=== PATIENT | female | born 1980 | race Caucasian/White ===

== ENCOUNTER → 2017-07-17 | Outpatient (CLI) | payer OTHER ==
[2017-07-17 19:29] LABS: BASO % 0.3 % (0.0-1.0); EOS % 0.4 % (0.0-3.0); LARGE UNSTAINED CELL # 0.1 K/mm3 (0.0-0.4); LARGE UNSTAINED CELL % 0.9 % (0.0-4.0); LYMPH % 12.6 % (24.0-44.0); MEAN CORPUSCULAR HEMOGLOBIN 32.4 pg (27.0-33.0); MEAN CORPUSCULAR HGB CONC 33.3 g/dl (32.0-36.5); MEAN CORPUSCULAR VOLUME 97.3 fl (80.0-96.0); MONO # 0.4 K/mm3 (0.0-0.8); MONO % 5.6 % (0.0-5.0); NEUTROPHILS # 5.9 K/mm3 (1.8-7.7); NEUTROPHILS % 80.2 % (36.0-66.0); PLATELET COUNT, AUTOMATED 244 k/mm3 (150-450); RED CELL DISTRIBUTION WIDTH 13.5 % (11.5-14.5); WHITE BLOOD COUNT 7.4 K/mm3 (4.0-10.0)
[2017-07-18 11:09] LABS: HBsAg Prenatal NEGATIVE (NEGATIVE)
== END ==
LOC: M SMT 14:00
PROVIDERS: ATTEND Obstetrics & Gynecology
DX: Z34.82 Encounter for supervision of other normal pregnancy, second trimester (principal); Z36 Encounter for antenatal screening of mother; Z3A.00 Weeks of gestation of pregnancy not specified

== ENCOUNTER → 2017-07-20 | Outpatient (CLI) | payer OTHER ==
--- NOTE | 2017-07-20 16:18 | REP ---
Obstetric sonography: History: Supervision of for anatomy. Findings: Scanning through the gravid uterus demonstrates a viable single intrauterine gestation in a variable lie. motion is observed and heart rate is recorded at 141 beats per minute. An anterior grade zero placenta is seen without evidence of previa. Amniotic fluid is subjectively normal. Closed cervical length measured transabdominally is 4.5 cm. No extrauterine abnormality is observed. No anomaly is seen. face and profile and four-chamber heart views are less than optimally achieved due to position. The following additional anatomic structures are identified and felt to be unremarkable: cranium, choroid plexus, cavum, cerebellum posterior fossa, nuchal fold, lungs, left and right ventricular outflow tract view, diaphragm, left-sided stomach, abdominal wall cord insertion, three-vessel umbilical cord, kidneys and bladder, spine, upper and lower extremities. Biometry chart: BPD 4.1 cm 18 weeks 4 days Head circumference 15.6 cm 18 weeks 4 days Abdominal circumference 12.9 cm 18 weeks 3 days Femur length 3.1 cm 19 weeks 5 days Humeral length 2.9 cm 19 weeks 4 days Cerebellar diameter 1.8 cm 18 weeks 0 days HC/AC ratio normal 1.21, cephalic index normal 0.73 estimated weight 268 grams 0 pounds 9 ounces 69th percentile for 18 weeks 3 days. Impression: Viable single intrauterine gestation at 18 weeks 5 days by today's composite sonographic criteria. ALIA by today's sonography 12/18/2017. face and four-chamber heart views less than optimally seen due to position. Signed by Lazaro Salcido MD 07/20/2017 05:01 P
== END ==
LOC: M LRY 13:47
PROVIDERS: ATTEND Obstetrics & Gynecology
DX: Z34.82 Encounter for supervision of other normal pregnancy, second trimester (principal); Z36 Encounter for antenatal screening of mother; Z3A.18 18 weeks gestation of pregnancy

== ENCOUNTER → 2017-08-23 | Outpatient (CLI) | payer OTHER ==
--- NOTE | 2017-08-24 13:35 | REP ---
Clinical: Anatomical evaluation. Comparison: 07/20/2017 . Findings: Examination demonstrates a single live intrauterine in breech presentation. motion is identified by technologist. Placenta is noted anteriorly and grade zero without evidence for placenta previa or abruption. Amniotic fluid volume is normal. Cervix measures 3.9 cm in length and appears closed. Gestational age by LMP 23 weeks 2 days with ALIA 12/18/2017 . Gestational age by current measurements 23 weeks 1 day with ALIA 12/19/2017 . FHR equals 150 beats per minute. Estimated weight 624 grams ( 59th percentile). Anatomical assessment demonstrates normal structures including cranium, choroid plexus, cavum, cerebellum/posterior fossa, facial features, lungs, four-chamber heart/ventricular outflow tracts, diaphragm, stomach, cord insertion/three-vessel cord, kidneys/bladder, and extremities. Impression: Single live intrauterine in breech presentation demonstrating appropriate interval growth. In conjunction with prior examination anatomical assessment is complete and normal. No gross abnormalities are identified. Signed by Hermelindo Vidal MD 08/24/2017 02:53 A
== END ==
LOC: M LRY 13:41
PROVIDERS: ATTEND Advanced Practice Midwife
DX: Z36 Encounter for antenatal screening of mother (principal)

== ENCOUNTER → 2017-09-12 | Outpatient (CLI) | payer OTHER ==
[2017-09-12 13:29] LABS: BASO % 0.3 % (0.0-1.0); IMMATURE GRANULOCYTE % 1.8 % (0-0); LYMPH # 1.1 10^3/uL (1.5-4.5); LYMPH % 9.1 % (24.0-44.0); MEAN CORPUSCULAR HEMOGLOBIN 31.4 pg (27.0-33.0); MEAN CORPUSCULAR HGB CONC 32.4 g/dl (32.0-36.5); MEAN CORPUSCULAR VOLUME 97.1 fl (80.0-96.0); MONO # 0.6 10^3/uL (0.0-0.8); MONO % 4.7 % (0.0-5.0); NEUTROPHILS % 84.1 % (36.0-66.0); PLATELET COUNT, AUTOMATED 224 10^3/uL (150-450); RED CELL DISTRIBUTION WIDTH 12.9 % (11.5-14.5); WHITE BLOOD COUNT 11.9 10^3/uL (4.0-10.0)
== END ==
LOC: M SMT 10:42
PROVIDERS: ATTEND Advanced Practice Midwife
DX: Z34.83 Encounter for supervision of other normal pregnancy, third trimester (principal)

== ENCOUNTER 2017-10-15 20:12 | Outpatient (CLI) | payer OTHER ==
[~2017-10-15] VITALS: Ht 162.6 cm; Wt 68.6 kg
[2017-10-15 22:34] LABS: MEAN CORPUSCULAR HEMOGLOBIN 31.6 pg (27.0-33.0); MEAN CORPUSCULAR HGB CONC 32.8 g/dl (32.0-36.5); MEAN CORPUSCULAR VOLUME 96.3 fl (80.0-96.0); PLATELET COUNT, AUTOMATED 225 10^3/uL (150-450); RED CELL DISTRIBUTION WIDTH 12.8 % (11.5-14.5); WHITE BLOOD COUNT 10.8 10^3/uL (4.0-10.0)
[2017-10-15] MEDS: BETAMETHASONE SOLUSPAN 6MG/ML INJ 5ML (J0702) IM SCH (22:44)
[2017-10-15 22:45] LABS: INR 0.96
[2017-10-15 23:00] LABS: ALBUMIN 2.4 GM/DL (3.2-5.2); ALBUMIN/GLOBULIN RATIO 0.73 (1.00-1.93); ALKALINE PHOSPHATASE 65 U/L (45-117); ALT/SGPT 10 U/L (12-78); ANION GAP 5 MEQ/L (8-16); AST/SGOT 9 U/L (7-37); BILIRUBIN,TOTAL 0.4 MG/DL (0.2-1.0); BLOOD UREA NITROGEN 6 MG/DL (7-18); CALCIUM LEVEL 8.3 MG/DL (8.5-10.1); CARBON DIOXIDE LEVEL 26 MEQ/L (21-32); CHLORIDE LEVEL 110 MEQ/L (98-107); GLOMERULAR FILTRATION RATE > 60.0 (>60); GLUCOSE, FASTING 90 MG/DL (70-105); POTASSIUM SERUM 4.1 MEQ/L (3.5-5.1); SODIUM LEVEL 141 MEQ/L (136-145); TOTAL PROTEIN 5.7 GM/DL (6.4-8.2)
[2017-10-16 06:23] LABS: MEAN CORPUSCULAR HEMOGLOBIN 31.6 pg (27.0-33.0); MEAN CORPUSCULAR HGB CONC 32.8 g/dl (32.0-36.5); MEAN CORPUSCULAR VOLUME 96.5 fl (80.0-96.0); PLATELET COUNT, AUTOMATED 217 10^3/uL (150-450); RED CELL DISTRIBUTION WIDTH 12.8 % (11.5-14.5); WHITE BLOOD COUNT 9.7 10^3/uL (4.0-10.0)
[2017-10-16 07:23] VITALS: BP 100/58
[2017-10-16 09:03] VITALS: BP 109/59
--- NOTE | 2017-10-16 09:49 | REP ---
OB ULTRASOUND: Real-time sonographic evaluation of the gravid uterus performed utilizing transabdominal and endovaginal technique. There is a single living intrauterine gestation, estimated gestational age 31 weeks with EDC 12/18/2017. Today's measurements indicate appropriate growth. BPD 80 mm 31 weeks 6 days, 63rd percentile HC 294 mm 32 weeks 3 days, 72nd percentile AC 275 mm 31 weeks 4 days, 58th percentile FL 60 mm 31 weeks 3 days, 55th percentile HC/AC ratio 1.07 within normal range. Estimated weight 1803 grams, 56th percentile. Cervix is closed and measures 3.3 cm in length. heart rate 131 beats per minute. Amniotic fluid within normal limits. SVETA 16.4 within normal range of 8.8 to 23.8. S/d ratio 2.65 within normal range of 2.5 - 3.5. RI 0.62 within normal range of 0.59 - 0.75. Visualized anatomy today includes the lateral ventricles, four chamber heart, left ventricular outflow tract, stomach, kidneys, and spine which are all grossly unremarkable. position vertex. Placenta is anterior and grade 1 with no previa or abruption. Signed by Ryan Lopez MD 10/16/2017 04:56 P
[2017-10-16] MEDS: BETAMETHASONE SOLUSPAN 6MG/ML INJ 5ML (J0702) IM SCH (10:12)
== END 2017-10-16 10:28 | disposition home or self-care (01) ==
LOC: M LDO 20:12
PROVIDERS: ATTEND Obstetrics & Gynecology
DX: O26.853 Spotting complicating pregnancy, third trimester (principal); Z3A.31 31 weeks gestation of pregnancy; O09.523 Supervision of elderly multigravida, third trimester
CPT/HCPCS: 36415; 59025; 76815; 76816; 76817; 76820; 80053; 80307; 85027; 85384; 85460; 85610; 85730; 86850; 86870; 86900; 86901; 96372; J0702

== ENCOUNTER → 2017-11-27 | Outpatient (REF) | payer OTHER | LOC: M LAB REF 17:15 | DX: Z34.83 Encounter for supervision of other normal pregnancy, third trimester (principal); Z3A.00 Weeks of gestation of pregnancy not specified ==

== ENCOUNTER 2017-12-12 04:43 | Inpatient (IN) | payer OTHER ==
[2017-12-12] MEDS: BICITRA 30ML SOLN UDC PO (05:00)
[2017-12-12] MEDS: LR 1,000 ML IV ×5 (05:40→18:24)
[2017-12-12 05:50] LABS: HEMATOCRIT 32.1 % (36.0-47.0); HEMOGLOBIN 10.3 g/dl (12.0-16.0); MEAN CORPUSCULAR HEMOGLOBIN 29.7 pg (27.0-33.0); MEAN CORPUSCULAR HGB CONC 32.1 g/dl (32.0-36.5); MEAN CORPUSCULAR VOLUME 92.5 fl (80.0-96.0); PLATELET COUNT, AUTOMATED 214 10^3/uL (150-450); RED BLOOD COUNT 3.47 10^6/uL (4.00-5.40); RED CELL DISTRIBUTION WIDTH 13.1 % (11.5-14.5); WHITE BLOOD COUNT 11.4 10^3/uL (4.0-10.0)
[2017-12-12 06:06] LABS: AMPHETAMINES URINE REFLEX NEGATIVE (NEGATIVE); BARBITURATES URINE REFLEX NEGATIVE (NEGATIVE); BENZODIAZEPINES URINE REFLEX NEGATIVE (NEGATIVE); CANNABINOIDS URINE REFLEX NEGATIVE (NEGATIVE); COCAINE METABOLITE URINE REFLE NEGATIVE (NEGATIVE); METHADONE URINE REFLEX NEGATIVE (NEGATIVE); OPIATES URINE REFLEX NEGATIVE (NEGATIVE); PHENCYCLIDINE URINE REFLEX NEGATIVE (NEGATIVE)
[2017-12-12] MEDS ORDERED: NALOXONE INJ 0.4 MG/1 ML VIAL (J2310) IV ×2 (08:01)
[2017-12-12] MEDS ORDERED: ONDANSETRON 4MG/2ML VIAL (J2405) IV ×3 (08:01→09:45)
[2017-12-12] MEDS ORDERED: NALBUPHINE HCL 10 MG/ML AMP (J2300) IV ×2 (08:01→09:45)
[2017-12-12] MEDS ORDERED: METOCLOPRAMIDE INJ 10MG/2ML VIAL (J2765) IV (08:01)
[2017-12-12] MEDS: PRENATAL VITAMINS CHEWABLE TABLET PO (09:00)
[2017-12-12] MEDS ORDERED: MOM 30ML SUSPENSION UDC PO (09:30)
[2017-12-12] MEDS: OXYTOCIN DRIP 30 UNITS in APPROPRIATE DILUENT 1 EA IV (09:30)
[2017-12-12] MEDS ORDERED: fentaNYL 100 MCG/2 ML INJECTION (J3010) IV (09:45)
[2017-12-12] MEDS ORDERED: MORPHINE PRES-FREE INJ 10 MG/10 ML VIAL (J2274) As Ordered (10:00)
[2017-12-12] MEDS ORDERED: ePHEDrine INJ 50 MG/ML VIAL As Ordered (10:00)
[2017-12-12] MEDS ORDERED: ONDANSETRON 4MG/2ML VIAL (J2405) As Ordered (10:00)
[2017-12-12] MEDS ORDERED: PHENYLephrine HCL 500 MCG/5 ML (100MCG/ML) SYRINGE (J2370) As Ordered (10:00)
[2017-12-12] MEDS ORDERED: KETOROLAC 60 MG/2 ML VIAL (J1885) As Ordered (10:00)
[2017-12-12] MEDS: MEASLES,MUMPS,RUBELLA VACCINE INJ (MMR-II) (90707) SC (11:43)
[2017-12-12] MEDS: KETOROLAC 30 MG/ML VIAL (J1885) IV ×2 (15:33→21:50)
[2017-12-12] MEDS: DOCUSATE SODIUM 100 MG CAP PO (21:49)
[2017-12-13] MEDS: LR 1,000 ML IV ×2 (01:30→09:30)
[2017-12-13] MEDS: KETOROLAC 30 MG/ML VIAL (J1885) IV (04:03)
[2017-12-13 07:14] LABS: HEMATOCRIT 27.8 % (36.0-47.0); HEMOGLOBIN 8.9 g/dl (12.0-16.0); MEAN CORPUSCULAR HEMOGLOBIN 29.7 pg (27.0-33.0); MEAN CORPUSCULAR VOLUME 92.7 fl (80.0-96.0); PLATELET COUNT, AUTOMATED 163 10^3/uL (150-450); WHITE BLOOD COUNT 14.1 10^3/uL (4.0-10.0)
[2017-12-13] MEDS: DOCUSATE SODIUM 100 MG CAP PO ×2 (08:43→20:29)
[2017-12-13] MEDS: PRENATAL VITAMINS CHEWABLE TABLET PO (08:43)
[2017-12-13 09:16] LABS: FETAL SCREEN PROF. 1 1
[2017-12-13] MEDS: IBUPROFEN 800 MG TAB PO ×2 (11:41→20:30)
[2017-12-13] MEDS: RHOGAM 300 MCG (1500 IU) INJ (J2790) IM (15:09)
[2017-12-13] MEDS ORDERED: diphenhydrAMINE 50 MG CAP PO (16:15)
[2017-12-13] MEDS: PERCOCET 5MG/325MG TAB PO (21:15)
[2017-12-14] MEDS: IBUPROFEN 800 MG TAB PO ×2 (03:07→12:15)
[2017-12-14] MEDS: PERCOCET 5MG/325MG TAB PO ×2 (05:42→12:20)
[2017-12-14] MEDS: DOCUSATE SODIUM 100 MG CAP PO (08:47)
[2017-12-14] MEDS: PRENATAL VITAMINS CHEWABLE TABLET PO (08:48)
== END 2017-12-14 14:30 | disposition home or self-care (01) | DRG 766 ==
LOC: M LDI 04:43 → M OBS 10:51
PROVIDERS: Obstetrics & Gynecology
PROC: 10D00Z1 Extraction of Products of Conception, Low, Open Approach (ICD-10-PCS; principal; 2017-12-12 07:30)
PROC: 3E0234Z Introduction of Serum, Toxoid and Vaccine into Muscle, Percutaneous Approach (ICD-10-PCS; 2017-12-12 07:30)
DX: O34.211 Maternal care for low transverse scar from previous cesarean delivery (principal); Z3A.39 39 weeks gestation of pregnancy; Z37.0 Single live birth

== ENCOUNTER → 2019-05-08 | Outpatient (REF) | payer OTHER ==
[~2019-05-08] MED LIST: FLINCHW9 PO; IBUP-1114 PO; IBUP1TAB7 PO; OXYC1TAB23 PO; PERCOCET PO
[2019-05-10 15:14] LABS: HPV HYBRID CAPTURE II Negative (Negative)
== END ==
LOC: M LAB REF 17:32
PROVIDERS: ATTEND Advanced Practice Midwife
DX: Z12.4 Encounter for screening for malignant neoplasm of cervix (principal)

== ENCOUNTER → 2019-05-21 | Outpatient (CLI) | payer OTHER | LOC: M SMT 10:54 | PROVIDERS: ATTEND Advanced Practice Midwife | DX: Z13.79 Encounter for other screening for genetic and chromosomal anomalies (principal) ==

== ENCOUNTER → 2019-05-27 | Outpatient (CLI) | payer OTHER ==
--- NOTE | 2019-05-27 10:36 | REPMRS ---
Patient History The patient states she had a clinical breast exam in April 2019.Family history of prostate cancer in paternal uncle, breast cancer in paternal aunt. Taking hormonal contraceptives for 1 year. Father with brain cancer. 2D only - [place]. denied, patient on Depo. The [place] Dorantes lifetime risk for breast cancer is 14.1%. Digital Mammo Screening Bilat: May 27, 2019 - Exam #: [id number] Bilateral CC and MLO view(s) were taken. Technologist: Amena Henson, Technologist No prior studies available for comparison. FINDINGS: The breast tissue is heterogeneously dense. This may lower the sensitivity of mammography. There is no evidence of cancer on this mammogram. Assessment: BI-RADS/ACR category 2 mammogram. Benign Findings. Recommendation Routine screening mammogram of both breasts in 1 year (for women over age 40). This mammogram was interpreted with the aid of an FDA-approved computer-aided dectection system. Electronically Signed By: Ryan Lopez MD 05/27/19 [id number]
== END ==
LOC: M RAD 10:00
PROVIDERS: ATTEND Advanced Practice Midwife
DX: Z12.31 Encounter for screening mammogram for malignant neoplasm of breast (principal); Z80.3 Family history of malignant neoplasm of breast; Z80.42 Family history of malignant neoplasm of prostate

== ENCOUNTER → 2020-01-08 | Outpatient (REF) | payer OTHER | LOC: M SFHCLERA 17:07 | PROVIDERS: ATTEND Nurse Practitioner Family | DX: R53.81 Other malaise (principal) ==

== ENCOUNTER → 2020-05-14 | Outpatient (REF) | payer OTHER | LOC: M SFHCLERA 17:15 | PROVIDERS: ATTEND Physician Assistant | DX: R30.9 Painful micturition, unspecified (principal) | CPT/HCPCS: 81002; 81025; 87088; 87186; G0463 ==

== ENCOUNTER → 2020-10-14 | Outpatient (CLI) | payer OTHER | LOC: M WHC 13:07 | PROVIDERS: ATTEND Obstetrics & Gynecology | DX: R10.2 Pelvic and perineal pain (principal); Z53.9 Procedure and treatment not carried out, unspecified reason ==

== ENCOUNTER → 2020-11-03 | Outpatient (CLI) | payer OTHER ==
--- NOTE | 2020-11-03 16:24 | REP ---
INDICATION: R10.2 PELVIC AND PERINEAL PAIN. COMPARISON: None. TECHNIQUE: Transabdominal and transvaginal scanning were performed. FINDINGS: Uterine dimensions are normal at 8.9 x 4.8 x 2.2 cm. Endometrial echo is 0.9 cm thick and centrally placed. No free fluid is seen in the cul-de-sac. Visualized bladder leslie are smooth. The uterus is somewhat heterogeneous and is seen to be retroverted. No focal uterine mass is seen. There is a cervical nabothian cyst. Visualized urinary bladder leslie are smooth. The right ovary has dimensions of 2.9 x 1.8 x 2.2 cm. The left ovary dimensions are normal as well at 3.7 x 3.0 x 2.6 cm. It's Doppler flow was normal with resistive index of 0.47. There is a 2.4 cm complex follicle cyst in the left ovary. IMPRESSION: Retroverted uterus. Small complex follicle cyst left ovary.. Otherwise negative pelvic sonography. <Electronically signed by Rob Salcido > 11/03/20 [id number]
== END ==
LOC: M WHC 12:50
PROVIDERS: ATTEND Obstetrics & Gynecology
DX: N85.4 Malposition of uterus (principal); N83.02 Follicular cyst of left ovary; R10.2 Pelvic and perineal pain

== ENCOUNTER → 2020-12-22 | Outpatient (CLI) | payer OTHER | LOC: M LABSMTC 10:55 | PROVIDERS: ATTEND Anesthesiology | DX: Z01.812 Encounter for preprocedural laboratory examination (principal); Z20.822 Contact with and (suspected) exposure to COVID-19 ==

== ENCOUNTER 2020-12-27 07:36 | Day surgery (SDC) | payer OTHER, MEDICAID ==
[~2020-12-27] VITALS: Ht 162.6 cm; Wt 78.5 kg
[~2020-12-27 07:36] MED LIST changes: +LR 1,000 ML IV ONE; +ceFAZolin SOD 2 GM in IV 1 EA IV ONE
--- OUTSIDE RECORDS SUMMARY | 2020-12-27 07:45 | CCD ---
Author Author [facility] Organization [facility] Address Unknown Phone Unavailable Care Team Providers Care Shank Piece Tacker Name Role Phone PETRONASHUKRI STEFANODEDE Unavailable Unavailable Re-disclosure Warning The records that you are about to access may contain information from federally-assisted alcohol or drug abuse programs. If such information is present, then the following federally mandated warning applies: This information has been disclosed to you from records protected by federal confidentiality rules (42 CFR part 2). The federal rules prohibit you from making any further disclosure of this information unless further disclosure is expressly permitted by the written consent of the person to whom it pertains or as otherwise permitted by 42 CFR part 2. A general authorization for the release of medical or other information is NOT sufficient for this purpose. The Federal rules restrict any use of the information to criminally investigate or prosecute any alcohol or drug abuse patient.The records that you are about to access may contain highly sensitive health information, the redisclosure of which is protected by Article 27-F of the [place] State Public Health law. If you continue you may have access to information: Regarding HIV / AIDS; Provided by facilities licensed or operated by the [facility] Office of Mental Health; or Provided by the [facility] Office for People With Developmental Disabilities. If such information is present, then the following [facility] mandated warning applies: This information has been disclosed to you from confidential records which are protected by state law. State law prohibits you from making any further disclosure of this information without the specific written consent of the person to whom it pertains, or as otherwise permitted by law. Any unauthorized further disclosure in violation of state law may result in a fine or shelter sentence or both. A general authorization for the release of medical or other information is NOT sufficient authorization for further disc losure. Family History Family Member Name Family Member Gender Family Member Status Date o f Status Description Data Source(s) Unknown Male Problem MEDENT ([facility], ) Encounters Encounter Providers Location Date Indications Data Source(s ) Outpatient [address] [facility] [id number] 12/06/2020 12:00:00 AM EST eCW1 ([facility]) Outpatient [address] [facility] [id number] 10/14/2020 12:00:00 AM EST eCW1 ([facility]) Outpatient Attender: DEDE [facility] 07/27/2020 06:33:57 AM EDT [facility] Outpatient [address] [facility] [id number] 05/14/2020 12:00:00 AM EDT eCW1 ([facility]) Outpatient Attender: DEDE [facility] 05/04/2020 07:57:02 PM EDT [facility] [address] [place] [address] 01/08/2020 12:00:00 AM EST eCW1 ([facility]) Medications Medication Brand Name Start Date Product Form Dose Route Admi nistrative Instructions Pharmacy Instructions Status Indications Reaction Description Data Source(s) Acetaminophen 325 MG / Oxycodone Hydroch loride 5 MG Oral Tablet [Percocet] Percocet 5-325 MG Percocet 5-325 MG 12/14/2020 12:00:00 AM EST 1 .0 {tablet_as_needed} active Percocet 5-32 5 MG eCW1 ([facility]) NITROFURANTOIN, MACROCRYSTALS 25 MG / Ni trofurantoin, Monohydrate 75 MG Oral Capsule [Macrobid] Macrobid 100 MG Macrobid 100 MG 05/14/2020 12:00:00 AM EDT active Macrobid 100 MG eCW1 ([facility]) Albuterol Sulfate HFA 108 (90 Base) MCG/ACT Albuterol Sulfate HFA 108 (90 Base) MCG/ACT 01/08/2020 12:00:00 AM EST active 2 puffs as needed eCW1 ([facility]) 12 HR Dextromethorphan Hydrobromide 30 M G / Guaifenesin 600 MG Extended Release Oral Tablet [Mucinex DM] Mucinex DM 30-600 MG Mucinex DM 30-600 MG 01/08/20 12:00:00 AM EST active 1 tablet as needed eCW1 ([facility]) Fluticasone Propionate 50 MCG/ACT Fluticasone Propionate 50 MCG/ACT 01/08/2020 12:00:00 AM EST active 1 spray in each nostril eCW1 ([facility]) doxycycline hyclate 100 MG Oral Capsule Doxycycline Hy clate 100 MG Doxycycline Hyclate 100 MG 01/08/2020 12:00:00 AM EST active 1 capsule eCW1 ([facility]) Insurance Providers Payer name Policy type / Coverage type Policy ID Covered alliance party ID Covered alliance party's relationship to belcher Policy Belcher Plan Information CATHERINE [id number] SP [id number] [facility] [id number] SP [id number] [facility] P UNAVAILABLE S U NAVAILABLE [facility] [id number] SP [id number] Usp AT [facility] Maintenance Organization [place] [id number] Self [id number] [facility] AT [facility] Maintenance [facility] ([facility] [id number] Self [id number] Usp AT [facility] ([facility] [id number] Self [id number] [facility] ([facility] [id number] Self [id number] [facility] [id number] SP [id number] [facility] [id number] 2 [id number] [facility] O [id number] P [id number] [facility] O [id number] P [id number] [facility] [id number] S [id number] Problems, Conditions, and Diagnoses Code Display Name Description Problem Type Effective Dates Data Source(s) N93.9 Abnormal uterine bleeding Abnormal uterine bleeding (A UB) Problem 12/14/2020 12:00:00 AM EST eCW1 ([facility]) Surgeries/Procedures Procedure Description Date Indications Data Source(s) Influenza A+B 01/08/2020 12:00:00 AM EST eCW1 ([facility]) STREP A ASSAY W/OPTIC 01/08/2020 12:00:00 AM EST eCW1 ([facility]) Results ID Date Data Source [id number] 12/22/2020 09:00:00 AM EST [facility] Name Value Range Interpretation Code Description Data Lenore rce(s) Supporting Document(s) SARS coronavirus 2 RNA Not Detected [facility] [place] This lab was ordered by [facility] and reported by [facility]. ID Date Data Source [facility] Pelvis non-OB COMPLETE US 11/03/2020 12:00:00 AM EST eC W1 ([facility]) Name Value Range Interpretation Code Description Data Lenore rce(s) Supporting Document(s) WWBC Pelvis non-OB COMPLETE US eCW1 ([facility]) ID Date Data Source URINE CULTURE 05/17/2020 09:59:50 AM EDT eCW1 ([facility]) Name Value Range Interpretation Code Description Data Lenore rce(s) Supporting Document(s) URINE CULTURE eCW1 ([facility]) ID Date Data Source Urinalysis, no micro 05/15/2020 11:59:42 AM EDT eCW1 ([facility]) Name Value Range Interpretation Code Description Data Lenore rce(s) Supporting Document(s) 2+ Leukocyte eCW1 ([facility]) 5 pH eCW1 ([facility]) 1.015 Spec gravity eCW1 ([facility]) 2+ Protein eCW1 ([facility]) neg Glucose eCW1 ([facility]) neg Ketones eCW1 ([facility]) positive Nitrate eCW1 ([facility]) neg Bilirubin eCW1 ([facility]) yes Internal QC Acceptable (Y/N) e CW1 ([facility]) neg Urobili eCW1 ([facility]) 250 Blood eCW1 ([facility]) ID Date Data Source Test, Urine 05/14/2020 06:15:45 AM EDT eCW1 ([facility]) Name Value Range Interpretation Code Description Data Lenore rce(s) Supporting Document(s) Choriogonadotropin.beta subunit ( test) [Presence] in Urin e neg Test, Urine eCW1 ([facility]) yes Internal QC Acceptable (Y/N) e CW1 ([facility]) ID Date Data Source GATS (NEGATIVE STREP SCREEN) 01/08/2020 12:00:00 AM EST eCW1 ([facility]) Name Value Range Interpretation Code Description Data Lenore rce(s) Supporting Document(s) FULL REPORT IN LAB NOTES (eCW and [facility]). GATS CULTURE (NEG STREP SCR) eCW1 ([facility]) Procedure Social History Code Duration Value Status Description Data Source(s ) Smoking 12/11/2020 12:00:00 AM EST Never Smoker completed Never S moker eCW1 ([facility]) Smoking 10/14/2020 12:00:00 AM EST Never Smoker completed Never S moker eCW1 ([facility]) Smoking 05/14/2020 12:00:00 AM EDT Never Smoker completed Never S moker eCW1 ([facility]) Vital Signs ID Date Data Source UNK Name Value Range Interpretation Code Description Data Source(s) Diastolic blood pressure 86 mm[Hg] 86 mm[Hg] eCW1 ([facility]) Systolic blood pressure 132 mm[Hg] 132 mm[Hg] e CW1 ([facility]) Body mass index (BMI) [Ratio] 29.52 kg/m2 29.52 kg/m2 W1 ([facility]) Body height 64 [in_i] 64 [in_i] eCW1 ([facility]) Body weight 172 [lb_av] 172 [lb_av] eCW1 ([facility]) Diastolic blood pressure 80 mm[Hg] 80 mm[Hg] eCW1 ([facility]) Systolic blood pressure 138 mm[Hg] 138 mm[Hg] e CW1 ([facility]) Body mass index (BMI) [Ratio] 28.66 kg/m2 28.66 kg/m2 eCW1 ([facility]) Body height 64 [in_i] 64 [in_i] eCW1 ([facility]) Body weight 167 [lb_av] 167 [lb_av] eCW1 ([facility]) Diastolic blood pressure 98 mm[Hg] 98 mm[Hg] eCW1 ([facility]) Systolic blood pressure 140 mm[Hg] 140 mm[Hg] e CW1 ([facility]) Body temperature 98.0 [degF] 98.0 [degF] eCW1 ( [facility]) Respiratory rate 20 /min 20 /min eCW1 ([facility]) Heart rate 100 /min 100 /min eCW1 ([facility]) Body mass index (BMI) [Ratio] 27.98 kg/m2 27.98 kg/m2 W1 ([facility]) Body height 64 [in_i] 64 [in_i] eCW1 ([facility]) Body weight 163 [lb_av] 163 [lb_av] eCW1 ([facility]) Diastolic blood pressure 97 mm[Hg] 97 mm[Hg] eCW1 ([facility]) Systolic blood pressure 135 mm[Hg] 135 mm[Hg] e CW1 ([facility]) Body temperature 98.1 [degF] 98.1 [degF] eCW1 ( [facility]) Respiratory rate 20 /min 20 /min eCW1 ([facility]) Heart rate 107 /min 107 /min eCW1 ([facility]) Body mass index (BMI) [Ratio] 26.77 kg/m2 26.77 kg/m2 eCW1 ([facility]) Body height 64 [in_us] 64 [in_us] eCW1 ([facility]) Body weight Measured 156 [lb_av] 156 [lb_av] eC W1 ([facility]) Patient Treatment Plan of Care Planned Activity Planned Date Details Description Data Source (s) Acetaminophen 325 MG / Oxycodone Hydrochloride 5 MG Or al Tablet [Percocet] 12/14/2020 12:00:00 AM EST eCW1 ([facility]) NITROFURANTOIN, MACROCRYSTALS 25 MG / Ni trofurantoin, Monohydrate 75 MG Oral Capsule [Macrobid] 05/14/2020 12:00:00 AM EDT eC W1 ([facility]) Albuterol Sulfate HFA 108 (90 Base) MCG/ACT 01/08/2020 12:00:00 AM EST eCW1 ([facility]) doxycycline hyclate 100 MG Oral Capsule 01/08/2020 12:00:00 AM EST eCW1 ([facility]) Fluticasone Propionate 50 MCG/ACT 01/08/2020 12:00:00 AM EST eCW1 ([facility]) 12 HR Dextromethorphan Hydrobromide 30 M G / Guaifenesin 600 MG Extended Release Oral Tablet [Mucinex DM] 01/08/2020 12:00:00 AM EST eCW1 ([facility])
--- OUTSIDE RECORDS SUMMARY | 2020-12-27 07:45 | CCD ---
Author Author [facility] Organization [facility] Address Unknown Phone Unavailable Care Team Providers Care Athletic Equipment Custodian Name Role Phone Teresa Soto Unavailable PROBLEMS No Information ALLERGIES No Known Allergies ENCOUNTERS from 1980 to 2020-11-05 Encounter Location Date Provider Diagnosis [facility] [address] [place] [phone] Sep, Teresa Soto Pelvic and perineal pain R10.2 IMMUNIZATIONS No Information SOCIAL HISTORY Tobacco Use: Social History Observation Description Date Details (start date - stop date) Never Smoker Sex Assigned At : Social History Observation Description Sex Assigned At Unknown Alcohol Screening: Question Answer Notes Did you have a drink containing alcohol in the past year? No Points 0 Interpretation Negative Tobacco Use: Question Answer Notes Are you a: never smoker REASON FOR REFERRAL No Information VITAL SIGNS Weight 167 lbs Sep, Height 64 in Sep, BMI 28.66 kg/m2 Sep, Blood pressure systolic 138 mm Hg Sep, Blood pressure diastolic 80 mm Hg Sep, MEDICATIONS No Known Medications PROCEDURES No Information RESULTS Component Value Reference Range [facility]BC Pelvis non-OB COMPLETE US Reviewed date:11/04/2020 17:01:05 Interpretation: Performing Lab:[facility],[address]], ,[place] [address] REASON FOR VISIT EXTREME PERIOD PAIN MEDICAL (GENERAL) HISTORY Type Description Date Surgical History C section x 3 Surgical History tubal reversal Surgical History Tubal Hospitalization History childbirth Goals Section No Information Health Concerns No Information MEDICAL EQUIPMENT No Information MENTAL STATUS No Information FUNCTIONAL STATUS No Information ASSESSMENTS Encounter Date Diagnosis Assessment Notes Treatment Notes Treatm ent Clinical Notes Sep, Pelvic and perineal pain (ICD-10 - R10.2) f/u after completing pelvic u/s PLAN OF TREATMENT Treatment Notes Assessment Notes Clinical Notes Pelvic and perineal pain f/u after compl eting pelvic u/s Next Appt Details Provider Name:Teresa Soto, 2020-12-06 1 1:20:00 AM, [address] [place], [phone], Insurance Providers Payer Name Payer Address Payer Phone Insured Name Patient Relati onship to Insured Coverage Start Date Coverage End Date [address] [phone] BOLIVAR MANRIQUE self
--- OUTSIDE RECORDS SUMMARY | 2020-12-27 07:45 | CCD ---
Author Author [facility] Organization [facility] [employer] [facility] Address Unknown Phone Unavailable Care Team Providers Care Tip Cutter Name Role Phone Teresa Soto Unavailable PROBLEMS Type Condition ICD9-CM Code [id number] Code Onset Dates Condition S tatus SNOMED Code Notes Problem Abnormal uterine bleeding (AUB) N93.9 Active [id number] ALLERGIES No Known Allergies ENCOUNTERS from 1978 to 2020-12-15 Encounter Location Date Provider Diagnosis [facility] [address] [place] [phone] Nov, Teresa Soto Pelvic and perineal pain R10.2 [...] FOR REFERRAL No Information VITAL SIGNS Weight 172 lbs Nov, Height 64 in Nov, BMI 29.52 kg/m2 Nov, Blood pressure systolic 132 mm Hg Nov, Blood pressure diastolic 86 mm Hg Nov, MEDICATIONS Medication SIG (Take, Route, Frequency, Duration) Notes Start Da te End Date Status Ibuprofen 800 MG 1 tablet with food or milk as needed Ora lly Three times a day Active Pyridium 200 MG 1 tablet after meals Orally Three times a day. Day before surgery Active Percocet 5-325 MG 1 tablet as needed Orally every 6 hrs for 5 Nov, Active PROCEDURES No Information RESULTS No Results REASON FOR VISIT US F/UP MEDICAL (GENERAL) HISTORY Type Description Date Surgical History C section x 3 Surgical History tubal reversal Surgical History Tubal Hospitalization History childbirth Goals Section No Information Health Concerns No Information MEDICAL EQUIPMENT No Information MENTAL STATUS No Information FUNCTIONAL STATUS No Information ASSESSMENTS Encounter Date Diagnosis Assessment Notes Treatment Notes Treatm ent Clinical Notes Nov, Pelvic and perineal pain (ICD-10 - R10.2) PLAN OF TREATMENT Medication Medication Name Sig Start Date Stop Date Ibuprofen 800 MG 1 tablet with food or milk as needed Ora lly Three times a day Percocet 5-325 MG 1 tablet as needed Orally every 6 hrs for 5 Nov, Pyridium 200 MG 1 tablet after meals Orally Three times a day. Day before surgery Next Appt Details Provider Name:Teresa Broussardn, 2020-12-27 0 8:30:00 AM, [address] [place] [address], [phone], Provider Name:Teresa Broussardchayito 2021-01-05 1 0:40:00 AM, [address] [place] [address], [phone], Provider Name:Teresa Gusman Charles 2021-02-07 0 8:20:00 AM, [address] [place] [address], [phone], Insurance Providers Payer Name Payer Address Payer Phone Insured Name Patient Relati onship to Insured Coverage Start Date Coverage End Date [address] [phone] BOLIVAR MANRIQUE self
[2020-12-27] MEDS ORDERED: LIDOCAINE 2% 100MG/5ML SDV (FOR ANES.) As Ordered ONE ×2 (08:04→08:17)
[2020-12-27] MEDS ORDERED: propofoL 200 MG/20 ML VIAL As Ordered ONE ×2 (08:04→10:47)
[2020-12-27] MEDS ORDERED: ROCURONIUM BROMIDE 50 MG/5 ML VIAL As Ordered ONE ×2 (08:04→10:03)
[2020-12-27] MEDS ORDERED: dexameTHASONE 4 MG/ML 1ML VIAL (J1100 PER 1MG) As Ordered ONE (08:05)
[2020-12-27] MEDS ORDERED: MIDAZOLAM INJ 2MG/2ML VIAL (J2250 PER 1MG) As Ordered ONE (08:05)
[2020-12-27] MEDS ORDERED: ONDANSETRON 4MG/2ML VIAL As Ordered ONE (08:05)
[2020-12-27] MEDS ORDERED: fentaNYL 100 MCG/2 ML INJECTION (J3010) As Ordered ONE (08:05)
[2020-12-27 08:25] LABS: HEMOGLOBIN 12.9 g/dl (12.0-15.5); MEAN CORPUSCULAR HEMOGLOBIN 29.9 pg (27.0-33.0); MEAN CORPUSCULAR HGB CONC 31.5 g/dl (32.0-36.5); MEAN CORPUSCULAR VOLUME 95.1 fl (80.0-96.0); PLATELET COUNT, AUTOMATED 246 10^3/uL (150-450); RED BLOOD COUNT 4.31 10^6/uL (4.00-5.40); WHITE BLOOD COUNT 6.5 10^3/uL (4.0-10.0)
[2020-12-27] MEDS ORDERED: KETOROLAC 60MG 2ML VIAL As Ordered ONE (08:26)
[2020-12-27] MEDS ORDERED: BUPIVACAINE HCL 0.25% 30ML VIAL As Ordered ONE (08:56)
--- NOTE | 2020-12-27 09:34 | ROOPDOC ---
[facility] Report Of Operation Report of Operation DATE OF PROCEDURE: 12/27/20 PREPROCEDURE DIAGNOSES: 1. Abnormal uterine bleeding. 2.Dysmenorrhea POSTPROCEDURE DIAGNOSES: 1. Abnormal uterine bleeding. 2.Dysmenorrhea PROCEDURES PERFORMED: 1. Robotic-assisted laparoscopic hysterectomy. 2. Bilateral salpingectomy. 3. Cystoscopy. SURGEON: Chanel Soto MD SHOE PATTERNMAKER: SABRINA Landeros ANESTHESIA: General endotracheal anesthesia. ESTIMATED BLOOD LOSS: 50 mL. INTRAVENOUS FLUIDS: 1000mL lactated Ringer solution. URINE OUTPUT: 100mL. PREPROCEDURE ANTIBIOTICS: 2g Ancef OPERATIVE FINDINGS: The patient with normal-appearing bilateral adnexa and uterus CYSTOSCOPIC FINDING: Normal bladder mucosa, no foreign objects. Bilateral ureteral jets were observed. SPECIMEN: Uterus, cervix, bilateral fallopian tubes DESCRIPTION OF PROCEDURE: After informed consent was obtained and written consent was reviewed, the patient was brought to the operating room, where general endotracheal anesthesia was obtained. She was then placed in lithotomy position, was prepped and draped in a normal sterile fashion. A time-out in the operating room was then performed, identifying the patient, procedure to be performed, as well as drug allergies. A speculum was then placed, revealing the cervix. The anterior and posterior aspects of the cervix were stitched with a 0 Vicryl. The uterus was then sounded to 8cm. A large Vdopiaare uterine manipulator was then advanced through the cervical os for means to manipulate the uterus. The cervical cap was applied over the cervix, as well as the vaginal sleeve applied into the vagina. The speculum was removed from the patients vagina. A Basilio catheter was then placed and set to gravity. Gloves were changed, and attention was turned to the patients abdomen, where a Veress needle was placed through the umbilicus. A pneumoperitoneum was then obtained with CO2 gas. The supraumbilical area was infused with 0.25% Marcaine. An incision was made in this area, and a 8 mm trocar and sleeve was advanced through this incision. The laparoscope was then replaced, revealing intra-abdominal placement. Three additional port sites were placed, two to the left side of the patient's abdomen and one to the right. These areas was infused with 0.25% Marcaine. Each one of these areas, incisions were made, and 8 mm trocars and sleeves advanced through each one of these incisions under direct visualization. Next, the da Jada was then docked, utilizing a camera arm and two operative arms. The patient's abdomen was then surveyed with the above-noted finding. Bilateral salpingectomies were then performed. The fallopian tubes' mesosalpinx was cauterized and ligated with hemostasis noted. Next, the uteroovarian ligaments bilateral were cauterized and ligated with good hemostasis noted. The round ligaments bilaterally were cauterized and ligated with good hemostasis noted. The anterior and posterior aspects of broad ligaments were . The anterior leaf of the broad ligament was cauterized and ligated and dissected along the bladder, creating a bladder flap. The remainder of the broad and cardinal ligaments were then cauterized and ligated with good hemostasis noted. The uterine arteries were skeletonized bilaterally and were cauterized and transected with good hemostasis noted. Anterior and posterior colpotomies were made using monopolar scissors. The uterus was then brought out through the vaginal incision. The surgical sites were inspected and noted to be hemostatic. The vaginal cuff was then closed using 2-0 V-Loc system in a running fashion. Hans was then applied over the surgical field. The pneumoperitoneum was then released. Next, the cystoscopy was then performed. Utilizing a 70-degree cystoscope, it was advanced transurethrally through the bladder. The bladder was surveyed, showing normal bladder mucosa, no foreign bodies. The bilateral ureteral jets were observed. The cystoscope was then removed. The bladder was then drained. Gloves were changed. Attention was then turned to the patients abdomen, where all four port sites wer e closed with 4-0 Monocryl and dressed with Dermabond. The patient was then taken out of lithotomy position and was awakened from general anesthesia and taken to recovery in stable condition. Counts were correct. Edyta Pruitt, my surgical assistant certified, played a central role in the operation. She assisted with port placement, tissue retraction and identification, as well as wound closure. CHANEL SOTO MD. Dec 27, 2020 09:34
[2020-12-27] MEDS ORDERED: PHENYLephrine 500MCG 5ML (100MCG/ML) SYRINGE As Ordered ONE (09:58)
[2020-12-27] MEDS ORDERED: SUGAMMADEX SODIUM 500 MG/5 ML VIAL (BRIDION) As Ordered ONE (10:42)
[2020-12-27] MEDS ORDERED: ACETAMINOPHEN 1000MG 100ML IV BTL (OFIRMEV) (J0131 PER 10MG) As Ordered ONE (10:45)
[2020-12-27] MEDS ORDERED: METOCLOPRAMIDE INJ 10MG/2ML VIAL (J2765 PER 1) As Ordered ONE (10:59)
[2020-12-27] MEDS ORDERED: PERCOCET 5MG/325MG TAB PO PRN ×2 (11:45→12:45)
[2020-12-27] MEDS ORDERED: ONDANSETRON 4MG/2ML VIAL IV PRN (11:45)
[2020-12-27] MEDS ORDERED: HYDROMORPHONE HCL 0.5 MG/ 0.5 ML SYRINGE (J1170 PER 1) IV PRN (11:45)
[2020-12-27] MEDS ORDERED: METOCLOPRAMIDE INJ 10MG/2ML VIAL (J2765 PER 1) IV PRN (11:45)
[2020-12-27] MEDS ORDERED: LR 1,000 ML IV SCH ×2 (11:45→12:45)
[2020-12-27] MEDS: oxyCODONE 5MG TAB PO PRN ×2 (11:47→12:17)
[2020-12-27] MEDS: fentaNYL 100 MCG/2 ML INJECTION (J3010) IV PRN ×2 (12:03→12:15)
[2020-12-27] MEDS ORDERED: PROMETHAZINE INJ 25 MG/ML VIAL (J2550) IV PRN (12:45)
[2020-12-27 13:00] VITALS: BP 116/63
[2020-12-27 13:30] VITALS: BP 87/54
[2020-12-27 14:00] VITALS: BP 90/54
[2020-12-27 15:00] VITALS: BP 98/53
[2020-12-27] MEDS ORDERED: KETOROLAC 30 MG/ML 1ML VIAL IV SCH ×2 (15:00→17:00)
[2020-12-27 16:00] VITALS: BP_SYST 55; BP_SYST 98; BP_DIAS 55
[2020-12-27 17:00] VITALS: BP 99/55
== END 2020-12-27 18:28 | disposition home or self-care (01) ==
LOC: M SDC 07:36 → M MSPAV 13:18 → M SDC 18:28
PROVIDERS: ATTEND Obstetrics & Gynecology
DX: N93.9 Abnormal uterine and vaginal bleeding, unspecified (principal); N94.6 Dysmenorrhea, unspecified; N80.0 Endometriosis of uterus
CPT/HCPCS: 36415; 58573; 81025; 85027; 86850; 86900; 86901; 88307; J0131; J0690; J1100; J1885; J2250; J2370; J2405; J2765; J3010; S2900

== ENCOUNTER → 2021-01-11 | Outpatient (REF) | payer OTHER, MEDICAID ==
[~2021-01-11] MED LIST changes: -LR 1,000 ML IV ONE; -ceFAZolin SOD 2 GM in IV 1 EA IV ONE
== END ==
LOC: M SFHCLERA 15:36
PROVIDERS: ATTEND Family Medicine
DX: R30.0 Dysuria (principal)

== ENCOUNTER → 2021-08-26 | Outpatient (REF) | payer OTHER, MEDICAID ==
[2021-08-27 06:59] LABS: APPEARANCE, URINE TURBID (CLEAR); BACTERIA, URINE AUTO 3+ (NEGATIVE); BILIRUBIN, URINE AUTO NEGATIVE (NEGATIVE); BLOOD, URINE BLOOD 2+ (NEGATIVE); COLOR, URINE YELLOW (YELLOW); GLUCOSE, URINE (UA) AUTO NEGATIVE (NEGATIVE); KETONE, URINE AUTO TRACE mg/dL (NEGATIVE); LEUKOCYTE ESTERASE, URINE AUTO 3+ (NEGATIVE); MUCUS, URINE LARGE (NEGATIVE); NITRITE, URINE AUTO POSITIVE (NEGATIVE); PROTEIN, URINE AUTO 2+ mg/dL (NEGATIVE); RBC, URINE AUTO 3 /HPF (0-3); SQUAMOUS EPITHELIAL CELL UR AU 23 /HPF (0-6); UROBILINOGEN, URINE AUTO 0.2 mg/dL (0.0-2.0); WBC, URINE AUTO TNTC /HPF (0-3)
== END ==
LOC: M LAB REF 19:00
PROVIDERS: ATTEND Physician Assistant
DX: R30.0 Dysuria (principal)